=== PATIENT | male | born 1980 | race African-American/Black ===

== ENCOUNTER 2019-11-16 17:36 | Emergency (ER) | payer SELFPAY ==
[~2019-11-16] VITALS: Ht 182.9 cm; Wt 90.7 kg
--- NOTE | 2019-11-16 17:28 | NUR ---
intoED Nurse Note: Pt brought in by ambulance from bus stop adn per ambulance personnel was drinking for alcohol intoxication. Pt is awake, drowsy, responsive to painful stimuli. Pt is set up on monitor. Pt has been seen by LAURA.
--- NOTE | 2019-11-16 17:45 | NUR ---
ED Nurse Note: Pt when asked if he fell and hit head nods up adn down. Still nonverbal, but follows commands.
[2019-11-16 17:47] VITALS: BP 125/87
--- NOTE | 2019-11-16 17:47 | Emergency Room Report ---
History of Present Illness General Chief Complaint: Alcohol Intoxication Source: Patient, EMS (Delmar You MD) Present Illness HPI Disclaimer: Please note that this report is being documented using [employer] technology. This can lead to erroneous entry secondary to incorrect interpretation by the dictating instrument. HPI: 39-year-old male presents for evaluation of altered mental status. He arrives by EMS from a bus stop after he was found dozing off and behaving abnormally. Patient admitted to drinking alcohol or today but could not quantify the amount of alcohol or the type of alcohol. Denies any other drug use. Denies trauma. He is somnolent but arousable. He is drifting in and out of sleep. Does not provide any other medical history at this time. Reports no complaints. PMH: Unable to obtain PSH: Unable to obtain Allergies: Unable to obtain Social Hx: Alcohol use (Delmar You MD) Allergies: Coded Allergies: UNABLE TO ASSESS (Unverified , 11/16/19) COVID-19 Screening Contact w/high risk pt: No Recent Travel to affected area: No Experienced COVID-19 symptoms?: No (Delmar You MD) Review of Systems All Other Systems: limited - Unable to obtain due to clinical condition (Delmar You MD) Physical Exam Vital Signs Date Time Temp Pulse Resp B/P (MAP) Pulse Ox O2 Delivery O2 Flow Rate FiO2 11/16/19 17:20 97.7 109 16 129/89 (102) 98 Room Air General: Awake, somnolent but arousable, no acute distress HEENT: NC/AT. No scalp or facial hematomas, lacerations or abrasions. EOMI. PERRLA. Moist mucous membranes. Cardiovascular: RRR. S1 and S2 normal. No murmur appreciated Resp: Normal work of breathing. No cough, wheezing or crackles appreciated Abdomen: Abdomen is soft, nondistended. Nontender Skin: Intact. No abrasions, laceration or rash over the exposed skin MSK: Normal tone and bulk. Moving all extremities. No obvious deformity. Neuro: Somnolent but arousable, GCS 13. Moving all extremities. Slurred speech. (Delmar You MD) Medical Decision Making Diagnostic Impression: Primary Impression: Acute alcoholic intoxication ER Course 39-year-old male presents for evaluation of altered mental status. Patient admits to alcohol use earlier in the day and appears clinically intoxicated. His blood alcohol level greater than 400, BMP unremarkable. His mother called to tell us that he has a seizure disorder as well. He is not on any anti- epileptic medication states he is only treated for seizures when he goes to an emergency department. No reports of seizure-like activity today. His presentation currently is more consistent with alcohol intoxication. Regardless , he was loaded with Keppra. Receiving IV fluids and will be allowed to metabolize. Will discharge once he is clinically sober. Laboratory Tests Test 11/16/19 17:49 Sodium Level 150 MMOL/L (136-145) H Potassium Level 3.8 MMOL/L (3.5-5.1) Chloride Level 110 MMOL/L (98-107) H Carbon Dioxide Level 26 MMOL/L (21-32) Anion Gap 14 mmol/L (5-15) Blood Urea Nitrogen 11 mg/dL (7-18) Creatinine 1.0 MG/DL (0.55-1.30) Estimated Glomerular Filtration Rate > 60 mL/min (>60) Glucose Level 91 MG/DL (74-106) Calcium Level 8.6 MG/DL (8.5-10.1) Serum Alcohol 466 mg/dL (Delmar You MD) ER Course Patient clinically sober on my exam. Patient alert and ambulatory in the ER. Plan to discharge in the care of the mother. Stable for discharge. (Arvin Macedo M.D.) Last Vital Signs Date Time Temp Pulse Resp B/P (MAP) Pulse Ox O2 Delivery O2 Flow Rate FiO2 11/16/19 17:20 97.7 109 16 129/89 (102) 98 Room Air (Delmar You MD) Delmar You MD November 16, 2019 17:47 Arvin Macedo M.D. November 16, 2019 23:04
[2019-11-16 18:19] LABS: ANION GAP 14 mmol/L (5-15); BLOOD UREA NITROGEN 11 mg/dL (7-18); CALCIUM 8.6 MG/DL (8.5-10.1); CARBON DIOXIDE 26 MMOL/L (21-32); CHLORIDE 110 MMOL/L (98-107); POTASSIUM 3.8 MMOL/L (3.5-5.1); SODIUM 150 MMOL/L (136-145)
--- NOTE | 2019-11-16 18:23 | NUR ---
ED Nurse Note: Mom called [phone] and states patient has history of seizures. ERMD notified.
[2019-11-16] MEDS ORDERED: levETIRAcetam 1,000mg/NS100ml 100 ML IVPB ONE (18:30)
--- NOTE | 2019-11-16 19:09 | NUR ---
HAND-OFF: Report given to Zeny ASCENCIO.
--- NOTE | 2019-11-16 20:50 | NUR ---
ED Nurse Note: Pt resting inbed with eyes closed, non-labored breathing, no signs of distress, pt rousable by voice. WIll continue to monitor
[2019-11-16 21:00] VITALS: BP 125/87
--- NOTE | 2019-11-16 22:41 | NUR ---
ED Nurse Note: Assisted pt to bathroom, ambulated with assistance. gave pt water and juice
[2019-11-16 23:30] VITALS: BP_SYST 121; BP_SYST 125; BP_DIAS 68; BP_DIAS 87
--- NOTE | 2019-11-16 23:30 | NUR ---
ER DISCHARGE NOTE: Patient is cleared to be discharged per ERMD, pt is aox4, on room air, with stable vital signs. pt was given dc and prescription instructions, pt was able to verbalize understanding, pt id band and iv site removed without complications. pt is able to ambulate with steady gait. pt took all belongings.
== END 2019-11-16 23:30 | disposition home or self-care (01) ==
LOC: EDBD 17:36 → EMR 21:35
DX: F10.129 Alcohol abuse with intoxication, unspecified (principal); G40.909 Epilepsy, unspecified, not intractable, without status epilepticus
CPT/HCPCS: 36415; 80048; 82962; 96361; 96374; 96375; 99284; G0480; J1953; J2405